=== PATIENT | male | born 1980 | race Caucasian/White ===

== ENCOUNTER 2020-01-31 15:40 | Emergency (ER) | payer OTHER ==
[~2020-01-31] VITALS: Ht 180.3 cm; Wt 74.8 kg
--- OUTSIDE RECORDS SUMMARY | 2020-01-31 15:43 | XMS REPORT ---
Author Author [facility] Address Unknown Phone Unavailable Care Team Providers Care Still Operator Helper Name Role Phone Unavailable Unavailable Payers Payer Name Policy Type Policy Number Effective Date Expiration Date Problems This patient has no known problems. Allergies, Adverse Reactions, Alerts Allergy Name Allergy Type Status Severity Reaction(s) Onset Date Inactive Date Treating Clinician Comments No Known Allergies DA Active U 2020-01-26 00:00:00 No Known Contrast Allergies DA Active U 2007-08-04 00:00:00 No Known Drug Allergies DA Active U 2007-08-04 00:00:00 No Known Food Allergies DA Active U 2007-08-04 00:00:00 No Known Other Allergies DA Active U 2007-08-04 00:00:00 Medications This patient has no known medications. Results Test Description Test Time Test Comments Text Results Atomic Results Result Comments - CT ABD PELVIS W/CONT 2020-01-26 21:54:00 Name: CHELO ROSS [facility] : 1980 Age/S: 39 / M [address] [facility] Unit #: [id number] Loc: [place] [address] Phys: GreysonadrianoRobbi Angelo DO Acct: [id number] Dis Date: Status: REG ER PHONE #: [phone] Exam Date: 01/26/20202136 FAX #: [phone] Reason: abd pain/bloody stool EXAMS: CPT CODE: [id number] CT ABD PELVIS W/CONT 81358 HISTORY: Abdominal pain and bloody stool. COMPARISON: None available. Location: TH. CT abdomen and pelvis with IV contrast: 100 mL of Isovue-370. Automated exposure control. CT of abdomen: The lung bases demonstrated dependent changes bilaterally. The liver is enhancing homogeneously. Contrast bolus is suboptimal. No discrete mass. Gallbladder is without radiopaque stones. Portal vein and hepatic artery are poorly visible but patent. Unremarkable spleen. Stomach distended incompletely however it is normal. Thickened distal esophagus. Thickened duodenal wall. Correlate for duodenitis. Pancreas is enhancing homogeneously. Adrenals are normal. Kidneys are free from hydroureteronephrosis. Homogeneous enhancement. Bilateral excretion is noted. 1.3 cm Bosniak 1 lesion in the medial left interpolar location with average Hounsfield unit measurement of 5. No pathologic adenopathy. Well-opacified abdominal and pelvic vasculature although contrast bolus is suboptimal. No bowel obstruction. Circumferential wall thickening at the hepatic flexure. Correlate for acute colitis. Follow-up following treatment. Mild left diverticulosis. Small bowel loops are unremarkable. CT PELVIS: Appendix is normal. Pelvic bowel loops are unobstructed. Severe sigmoid diverticulosis without diverticulitis. Unremarkable urinary bladder. Prostate is not enlarged. No pelvic pathologic adenopathy. Phleboliths. No free fluid or free air or abscess. Subcutaneous tissues and the musculature are normal in appearance. No PAGE 1 Signed Report (CONTINUED) Name: CHELO ROSS [facility] : 1980 Age/S: 39 / M [address] [facility] Unit #: [id number] Loc: [place] [address] Phys: Robbi López DO Acct: [id number] Dis Date: Status: [facility] ER PHONE #: [phone] Exam Date: 01/26/20201 FAX #: [phone] Reason: abd pain/bloody stool EXAMS: CPT CODE: [id number] CT ABD PELVIS W/CONT 71804 <Continued> lytic or blastic lesions are noted within the bony skeleton. IMPRESSION: Severe circumferential wall thickening at the hepatic flexure suggesting acute colitis. Pericolonic inflammation. Follow-up following treatment. Left diverticulosis without diverticulitis. Normal appendix. Mild duodenitis as well with thickened 3rd and 4th portion of the duodenum. No free fluid or free air or abscess. Electronically Signed by Casandra Sousa on at 2154 Reported and signed by: Benjamin Sousa M.D. CC: Soren Barber MD; Robbi López DO Technologist:Jennifer Vu RT(R),CT; CTDI: DLP: Trnscb Date/Time: 01/26/2020 (2153) [email or web address] Orig Print D/T: S: 01/26/2020 (2157) PAGE 2 Signed Report BASIC METABOLIC PANEL 2020-01-26 20:56:00 SODIUM (test code=NA) 142 mmol/L 136-145 POTASSIUM (test code=K) 4.1 mmol/L 3.5-5.1 CHLORIDE (test code=CL) 111.0 mmol/L 98-107 CARBON DIOXIDE (test code=CO2) 28.0 mmol/L 21-32 ANION GAP (test code=GAP) 7.1 10-20 GLUCOSE (test code=GLU) 107 mg/dL 74-106 BLOOD UREA NITROGEN (test code=BUN) 13 mg/dL 7-18 GLOMERULAR FILTRATION RATE (test code=GFR) > 60 mL/min >=60 Estimated GFR by using Modified MDRD formula.Chronic kidney disease is defined as either kidney damageor GFR <60 mL/min/1.73 m2 for >3 months. CREATININE (test code=CREAT) 1.00 mg/dL 0.7-1.3 BUN/CREATININE RATIO (test code=BUN/CREA) 13.0 10-20 CALCIUM (test code=CA) 8.3 mg/dL 8.5-10.1 HEPATIC FUNCTION [id number] 20:56:00* Test Item Value Reference Range Comments TOTAL PROTEIN (test code=PROT) 6.3 gram/dL 6.4-8.2 ALBUMIN (test code=ALB) 3.5 g/dL 3.4-5.0 GLOBULIN (test code=GLOB) 2.8 gram/dL 2.7-4.2 ALBUMIN/GLOBULIN RATIO (test code=A/G) 1.3 0.75-1.50 BILIRUBIN TOTAL (test code=BILT) 0.20 mg/dL 0.0-1.0 BILIRUBIN DIRECT (test code=BILD) 0.10 mg/dL 0.0-0.20 SGOT/AST (test code=AST) 9 IUnit/L 15-37 SGPT/ALT (test code=ALT) 31 IUnit/L 12-78 ALKALINE PHOSPHATASE TOTAL (test code=ALKP) 50 IUnit/L 45-117 Note change in reference range due to change in reagent. BASIC METABOLIC [id number] 20:45:00* Test Item Value Reference Range Comments SODIUM (test code=NA) 142 mmol/L 136-145 POTASSIUM (test code=K) 4.1 mmol/L 3.5-5.1 CHLORIDE (test code=CL) 111.0 mmol/L 98-107 CARBON DIOXIDE (test code=CO2) mmol/L 21-32 ANION GAP (test code=GAP) 10-20 GLUCOSE (test code=GLU) mg/dL 74-106 BLOOD UREA NITROGEN (test code=BUN) mg/dL 7-18 GLOMERULAR FILTRATION RATE (test code=GFR) mL/min >=60 CREATININE (test code=CREAT) mg/dL 0.7-1.3 BUN/CREATININE RATIO (test code=BUN/CREA) 10-20 CALCIUM (test code=CA) mg/dL 8.5-10.1 HEPATIC FUNCTION [id number] 20:45:00* Test Item Value Reference Range Comments TOTAL PROTEIN (test code=PROT) gram/dL 6.4-8.2 ALBUMIN (test code=ALB) g/dL 3.4-5.0 GLOBULIN (test code=GLOB) gram/dL 2.7-4.2 ALBUMIN/GLOBULIN RATIO (test code=A/G) 0.75-1.50 BILIRUBIN TOTAL (test code=BILT) mg/dL 0.0-1.0 BILIRUBIN DIRECT (test code=BILD) mg/dL 0.0-0.20 SGOT/AST (test code=AST) IUnit/L 15-37 SGPT/ALT (test code=ALT) IUnit/L 12-78 ALKALINE PHOSPHATASE TOTAL (test code=ALKP) IUnit/L 45-117 CBC W/O [id number] 20:27:00* Test Item Value Reference Range Comments WHITE BLOOD CELL (test code=WBC) 21.8 K/mm3 4.5-12.5 RED BLOOD CELL (test code=RBC) 4.22 mill/mm3 4.0-5.8 HEMOGLOBIN (test code=HGB) 12.9 gram/dL 13.0-17.5 HEMATOCRIT (test code=HCT) 39.5 % 42.0-52.0 MEAN CELL VOLUME (test code=MCV) 93.6 fL 80-98 MEAN CELL HGB (test code=MCH) 30.6 picogram 27.0-33.0 MEAN CELL HGB CONCETRATION (test code=MCHC) 32.7 gram/dL 33.0-36.0 RED CELL DISTRIBUTION WIDTH (test code=RDW) 12.9 % 11.6-16.2 PLATELET COUNT (test code=PLT) 169 K/mm3 150-450 MEAN PLATELET VOLUME (test code=MPV) 10.7 fL 6.7-11.0
[2020-01-31] MEDS ORDERED: SODIUM CHLORIDE 0.9% 1000ML 1,000 ML IV STA (16:47)
[2020-01-31] MEDS ORDERED: ONDANSETRON HCL INJ 2MG/ML 2ML 2 MG/ML VIAL IV STA (16:47)
[2020-01-31 17:07] LABS: BASOPHILS % 0.3 % (0.0-1.0); EOSINOPHILS # (AUTO) 0.1 (0.0-0.4); EOSINOPHILS % 0.7 % (0.0-6.0); HEMATOCRIT 31.2 % (38.2-49.6); HEMOGLOBIN 10.4 g/dL (14.0-18.0); LYMPHOCYTES # (AUTO) 1.4 (1.0-3.2); LYMPHOCYTES % 11.9 % (18.0-39.1); MEAN CORPUSCULAR HEMOGLOBIN 31.4 pg (28-32); MEAN CORPUSCULAR HGB CONC 33.3 g/dL (31-35); MEAN CORPUSCULAR VOLUME 94.3 fL (81-99); MONOCYTES # (AUTO) 1.1 (0.2-0.8); MONOCYTES % 9.1 % (4.4-11.3); NEUTROPHILS # (AUTO) 9.4 (2.1-6.9); NEUTROPHILS % 77.8 % (38.7-80.0); PLATELET COUNT 221 x10e3/uL (140-360); RED BLOOD COUNT 3.31 x10e6/uL (4.3-5.7); RED CELL DISTRIBUTION WIDTH 13.2 % (11.7-14.4)
[2020-01-31 17:10] LABS: CLARITY,URINE HAZY (CLEAR); COLOR,URINE AMBER (YELLOW); KETONES,URINE 1+ (NEGATIVE); LEUKOCYTE ESTERASE ,URINE NEGATIVE (NEGATIVE); NITRITE,URINE NEGATIVE (NEGATIVE); PROTEIN,URINE DIPSTICK 1+ (NEGATIVE); URINE UROBILINOGEN 0.2 mg/dL (0.2 - 1)
[2020-01-31 17:11] LABS: BILIRUBIN,URINE SMALL (NEGATIVE)
[2020-01-31 17:12] LABS: BACTERIA,URINE FEW /HPF; EPITHELIAL CELLS,URINE FEW /LPF; RBC,URINE 0-5 /HPF (0-5); WBC,URINE (MAN) 0-5 /HPF (0-5)
[2020-01-31] MEDS ORDERED: DICYCLOMINE HCL 20 MG/2 ML VIAL IM ONE (17:15)
[2020-01-31 17:21] LABS: INR 1.11; PARTIAL THROMBOPLASTIN TIME 27.9 seconds (23.8-35.5)
[2020-01-31 17:35] LABS: ALANINE AMINOTRANSFERASE 24 IU/L (0-55); ALBUMIN 3.7 g/dL (3.5-5.0); ALBUMIN/GLOBULIN RATIO 1.6 (0.8-2.0); ALKALINE PHOSPHATASE 41 IU/L (40-150); BLOOD UREA NITROGEN 11 mg/dL (7-26); BUN/CREATININE RATIO 9 (6-25); CALCIUM 8.8 mg/dL (8.4-10.2); CARBON DIOXIDE 28 mmol/L (22-29); CHLORIDE 111 mmol/L (98-107); CREATINE KINASE 49 IU/L (30-200); EST GLOMERULAR FILTRATION RATE > 60 ML/MIN (60-); GLUCOSE 92 mg/dL (74-118); LIPASE 19 U/L (8-78); SODIUM 144 mmol/L (136-145)
[2020-02-15] MEDS ORDERED: ULTRAM 50MG50 MG PO (07:20)
== END 2020-01-31 18:23 | disposition home or self-care (01) ==
LOC: ER 15:40
DX: R10.84 Generalized abdominal pain (principal); R19.7 Diarrhea, unspecified
CPT/HCPCS: 36415; 80053; 81001; 82550; 82553; 83690; 84484; 85025; 85610; 85730; 99284; J0500; J2405; J7030

== ENCOUNTER → 2020-02-15 | Day surgery (SDC) | payer OTHER ==
[~2020-02-15] MED LIST: FENTANYL CITRATE/PF 100MCG/2 ML INJ ONE; GLUCAGON FOR INJ 1 MG VIAL ONE; HYOSCYAMINE 0.125 MG TAB ONE; LIDOCAINE HCL 2% LOCAL INJ 5 ML SDV VIAL INJ ONE; MIDAZOLAM HCL 5 MG/ML VIAL ONE; PROPOFOL IV EMULSION 10 MG/ML 50 ML VIAL ONE; ULTRAM 50MG50 MG PO
[2020-02-15 09:50] VITALS: BP 103/77
--- NOTE | 2020-02-15 10:39 | Operative Report ---
DATE OF PROCEDURE: 02/15/2020 SURGEON: Hill Kuhn MD PROCEDURE: EGD with biopsies and colonoscopy with polypectomy and biopsies. INDICATIONS FOR EGD: Nausea, dark stools, and anemia. INDICATIONS FOR COLONOSCOPY: Rectal bleeding, lower abdominal pain, diarrhea, abnormal CT scan of the colon, repeat abnormal CT scan of the abdomen. MEDICATIONS: The patient was done under MAC, please see anesthesiologist's note. PROCEDURE IN DETAIL: With the patient in left lateral decubitus position, a flexible fiberoptic Olympus gastroscope was introduced into the esophagus under direct visualization without any difficulty. There was some patchy erythema noted in distal esophagus. The scope was then advanced with ease into the stomach. Mucosa overlying the antrum and the body revealed some patchy erythema and low-grade to moderate edema, and biopsies were obtained and sent to stain for H pylori. The pylorus was of normal contour and shape and was intubated with ease and the scope was advanced all the way to the second portion of the duodenum. Biopsies were obtained from the proximal second portion and duodenal bulb to rule out sprue. The scope was then withdrawn back into the stomach and retroflexed mucosa overlying the fundus and cardia appeared to be within normal limits. The scope was then straightened out, it was subsequently withdrawn, the patient tolerated the procedure well. IMPRESSION: 1. Distal esophagitis. 2. Gastritis, biopsied, biopsies sent to stain for H pylori. 3. Rule out sprue. PLAN: Follow up histology. Initiate Protonix 40 mg one p.o. q.a.m. a.c. PROCEDURE FOR COLONOSCOPY: The patient was then turned around after adequate lubrication of the anal canal. The flexible fiberoptic Olympus colonoscope was inserted into the rectum with ease and advanced all the way to the cecum. Mucosa overlying the cecum appeared to be within normal limits. The ileocecal valve was intubated and the scope was advanced into the terminal ileum. Biopsies were obtained. The scope was then withdrawn back into the colon. Of note, diverticular disease was noted throughout the colon. The scope was then withdrawn slowly and mucosa overlying the ascending and the transverse colon grossly appeared to be within normal limits other than for diverticular disease. There were some patchy mild inflammatory changes noted in the left colon and multiple random biopsies were obtained. Approximately 8 mm sessile polyp was removed per snare electrocautery from the sigmoid colon and minute polyp was hot biopsied from the rectum. The scope was then retroflexed into the distal rectum and moderate-sized internal hemorrhoids were noted, none of which was actively bleeding. The scope was then straightened out it was subsequently withdrawn. The patient tolerated the procedure well. IMPRESSION: 1. Pandiverticulosis. 2. Mild patchy left-sided colitis. 3. Sigmoid colon polyp approximately 8 mm in size, sessile, removed per snare electrocautery. 4. Rectal polyp, hot biopsied. 5. Internal hemorrhoids, none actively bleeding. PLAN: Follow up histology. Follow up stool studies. Initiate Bentyl 10 mg one p.o. t.i.d. VSL #3 one p.o. b.i.d. The patient might benefit from a followup colonoscopy in 3 years. Hill Kuhn MD [facility] [place] /[id number] cc: Soren Barber
[2020-02-15 13:25] LABS: C DIFFICILE TOXIN A&B AMP PROB NEGATIVE (NEGATIVE); WBC,FECAL (FECAL LACTOFERRIN) NEGATIVE (NEGATIVE)
== END | disposition home or self-care (01) ==
LOC: OR 06:59
PROVIDERS: ATTEND Internal Medicine Gastroenterology
DX: K29.70 Gastritis, unspecified, without bleeding (principal); K63.5 Polyp of colon; K62.1 Rectal polyp; K29.80 Duodenitis without bleeding; K51.50 Left sided colitis without complications; K20.9 Esophagitis, unspecified; K57.30 Diverticulosis of large intestine without perforation or abscess without bleeding; K64.8 Other hemorrhoids; D64.9 Anemia, unspecified; G47.33 Obstructive sleep apnea (adult) (pediatric); F41.9 Anxiety disorder, unspecified; F32.9 Major depressive disorder, single episode, unspecified; F17.210 Nicotine dependence, cigarettes, uncomplicated
CPT/HCPCS: 43239; 45380; 45384; 45385; 83630; 83993; 87045; 87177; 87328; 87493; 93005; J1610; J2001; J2250; J2704; J3010